=== PATIENT | male | born 1945 | race Caucasian/White ===

== ENCOUNTER 2018-08-24 09:43 | Outpatient (CLI) | payer MEDICARE, OTHER | END 2018-08-24 09:44 | disposition home or self-care (01) | LOC: NS 09:43 | PROVIDERS: ATTEND Internal Medicine | DX: Z71.3 Dietary counseling and surveillance (principal); E11.9 Type 2 diabetes mellitus without complications; Z79.84 Long term (current) use of oral hypoglycemic drugs | CPT/HCPCS: 97802 ==

== ENCOUNTER 2023-02-27 14:57 | Outpatient (CLI) | payer MEDICARE, OTHER ==
--- NOTE | 2023-02-28 10:36 | XRAY Report ---
PROCEDURE: Chest 2 View X-Ray INDICATIONS: COUGH TECHNIQUE: 2 views of the chest were acquired. COMPARISON: None. FINDINGS: Surgical changes and devices: None. Lungs and pleura: No pleural effusions or pneumothorax. Lungs are clear. Mediastinum: Mediastinal contours appear normal. Heart size is normal. Bones and chest wall: No suspicious bony lesions. Overlying soft tissues appear unremarkable. IMPRESSION: No acute cardiopulmonary process. Reviewed by: Thompson Pablo on 02/28/2023 10:34 AM PDT Approved by: Thompson Pablo on 02/28/2023 10:34 AM PDT Station ID: [id number]
== END 2023-02-27 14:58 | disposition home or self-care (01) ==
LOC: DI 14:57
PROVIDERS: ATTEND Student in an Organized Health Care Education/Training Program
DX: R05.9 Cough, unspecified (principal)

== ENCOUNTER 2023-04-16 13:00 | Outpatient (CLI) | payer MEDICARE, OTHER | END 2023-04-16 13:01 | disposition home or self-care (01) | LOC: RT 13:00 | PROVIDERS: ATTEND Student in an Organized Health Care Education/Training Program | DX: R05.9 Cough, unspecified (principal); R06.2 Wheezing | CPT/HCPCS: 94010; 94729 ==

== ENCOUNTER 2023-09-03 09:56 | Outpatient (CLI) | payer MEDICARE, OTHER ==
[2023-09-03 10:13] LABS: BASOPHILS # (AUTO) 0.1 10^3/uL (0.0-0.1); BASOPHILS % (AUTO) 0.7 %; EOSINOPHILS # (AUTO) 0.2 10^3/uL (0.0-0.7); EOSINOPHILS % (AUTO) 2.6 %; HCT - HEMATOCRIT 42.3 % (42.0-52.0); HGB - HEMOGLOBIN 13.6 g/dL (14.0-18.0); LYMPHOCYTES # (AUTO) 1.2 10^3/uL (1.5-3.5); LYMPHOCYTES % (AUTO) 16.5 %; MEAN CORPUSCULAR HEMOGLOBIN 29.2 pg (27.0-31.0); MEAN CORPUSCULAR HGB CONC 32.2 g/dL (32.0-36.0); MEAN PLATELET VOLUME 9.4 fL (7.4-11.4); MONOCYTES # (AUTO) 0.6 10^3/uL (0.0-1.0); MONOCYTES % (AUTO) 7.8 %; NEUTROPHILS # (AUTO) 5.3 10^3/uL (1.5-6.6); NEUTROPHILS % (AUTO) 71.9 %; PLT - PLATELET COUNT 203 10^3/uL (130-450); RED BLOOD COUNT 4.65 10^6/uL (4.70-6.10); RED CELL DISTRIBUTION WIDTH 14.2 % (12.0-15.0); WHITE BLOOD COUNT 7.3 x10^3/uL (4.8-10.8)
[2023-09-03 10:29] LABS: ALBUMIN 4.6 g/dL (3.2-5.5); ALBUMIN/GLOBULIN RATIO 1.6 (1.0-2.2); ALKALINE PHOSPHATASE 58 IU/L (42-121); ALT ALANINE AMINOTRANSFERASE 20 IU/L (10-60); AST ASPARTATE AMINOTRANSFERASE 18 IU/L (10-42); BILIRUBIN,TOTAL 0.7 mg/dL (0.2-1.0); BUN - BLOOD UREA NITROGEN 23 mg/dL (6-20); CARBON DIOXIDE - CO2 28 mmol/L (21-32); CHLORIDE 99 mmol/L (101-111); CHOL/HDL RATIO 5.1 (<5.0); CHOLESTEROL 187 mg/dL; CREATININE 1.3 mg/dL (0.6-1.3); CREATININE,URINE 211.3 mg/dL; GFR - MDRD 54 (>89); GLUCOSE 171 mg/dL (74-104); HDL CHOLESTEROL 37 mg/dL; LDL CHOLESTEROL,CALCULATED 97 mg/dL; LDL/HDL RATIO 2.6 (<3.6); MICROALBUM/CREATININE RATIO,UR 5.7 ug/mg (<30.0); MICROALBUMIN,URINE 1.2 mg/dL; POTASSIUM 5.4 mmol/L (3.5-4.5); SODIUM 132 mmol/L (135-145); TOTAL PROTEIN 7.5 g/dL (6.4-8.9); TRIGLYCERIDES 265 mg/dL (48-352); URIC ACID 6.7 mg/dL (4.4-7.6); VLDL CHOLESTEROL 53 mg/dL
[2023-09-03 10:44] LABS: THYROID STIMULATING HORMONE 1.86 uIU/mL (0.34-5.60)
[2023-09-03 10:47] LABS: ESTIMATED AVERAGE GLUCOSE 163 mg/dL (70-100); HEMOGLOBIN A1c% 7.3 % (4.27-6.07)
== END 2023-09-03 09:57 | disposition home or self-care (01) ==
LOC: LAB 09:56
PROVIDERS: ATTEND Nurse Practitioner
DX: I10 Essential (primary) hypertension (principal); Z12.5 Encounter for screening for malignant neoplasm of prostate; E11.9 Type 2 diabetes mellitus without complications; M10.9 Gout, unspecified; G62.9 Polyneuropathy, unspecified; R53.83 Other fatigue
CPT/HCPCS: 36415; 80053; 80061; 82043; 82570; 82607; 83036; 84443; 84550; 85025; G0103; 83721; 84153

== ENCOUNTER 2023-10-17 14:40 | Outpatient (CLI) | payer MEDICARE, OTHER ==
--- NOTE | 2023-10-17 21:21 | XRAY Report ---
PROCEDURE: Chest 2V INDICATIONS: COUGH TECHNIQUE: 2 views of the chest were acquired. COMPARISON: 07/25/2023. FINDINGS: Surgical changes and devices: None. Lungs and pleura: No pleural effusions or pneumothorax. Ill-defined opacity in left lower lung field is seen concerning for left lower lobe infiltrate. Right lung is clear.. Mediastinum: Mediastinal contours appear normal. Heart size is normal. Bones and chest wall: No suspicious bony lesions. Overlying soft tissues appear unremarkable. IMPRESSION: Finding is suggestive of small to moderate-sized left lower lobe infiltrate. No pleural effusion or p neumothorax. Reviewed by: Dominic Das MD on 10/17/2023 9:19 PM PST Approved by: Dominic Das MD on 10/17/2023 9:19 PM PST Station ID: [id number]
== END 2023-10-17 14:41 | disposition home or self-care (01) ==
LOC: DI 14:40
PROVIDERS: ATTEND Nurse Practitioner
DX: R05.9 Cough, unspecified (principal)

== ENCOUNTER 2023-11-19 23:35 | Emergency (ER) | payer MEDICARE, OTHER ==
--- NOTE | 2023-11-20 00:46 | ED Physician Documentation ---
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 denies cough, fever, soa, n/v, back pain. 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 Costa at [facility]. Patient had echocardiogram and treadmill stress test last week and is scheduled for nuclear stress testing this friday. he thinks his workup has been normal thus far. Review of Systems Constitutional: denies: Fever, Chills Cardiac: reports: Chest pain / pressure. denies: Palpitations Respiratory: denies: Dyspnea, Cough GI: denies: Abdominal Pain, Nausea, Vomiting PD PAST MEDICAL HISTORY - Past Medical History Cardiovascular: Hypertension Endocrine/Autoimmune: Type 2 diabetes - Past Surgical History Past Surgical History: No - Present Medications Home Medications: Ambulatory Orders Medication Instructions Recorded Confirmed Diltiazem HCl [Diltiazem 12Hr ER] 1 cap PO DAILY 11/19/23 11/19/23 Doxazosin [Cardura] 1 tab PO DAILY PM 11/19/23 11/19/23 Lisinopril [Zestril] 1 tab PO DAILY 11/19/23 11/19/23 Metoprolol Succinate [Toprol Xl] 1 tab PO DAILY 11/19/23 11/19/23 Spironolactone [Aldactone] 1 tab PO DAILY 11/19/23 11/19/23 allopurinoL [Allopurinol] 150 mg PO DAILY 11/19/23 11/19/23 metFORMIN [Glucophage] 1 tab PO BID 11/19/23 11/19/23 - Allergies Allergies/Adverse Reactions: Allergies Allergy/AdvReac Type Severity Reaction Status Date / Time Sulfa (Sulfonamide Allergy Unknown Verified 11/19/23 23:43 Antibiotics) - Social History Does the pt smoke?: No Smoking Status: Never smoker Does the pt drink ETOH?: Yes PD ED PE NORMAL - Vitals Vital signs reviewed: Yes - General General: Alert and oriented X 3, No acute distress, Well developed/nourished - HEENT HEENT: Atraumatic, PERRL, EOMI, Moist mucous membranes - Neck Neck: Supple, no meningeal sign - Cardiac Cardiac: RRR - Respiratory Respiratory: No respiratory distress, Clear bilaterally - Abdomen Abdomen: Non tender, Non distended - Derm Derm: Normal color, Warm and dry Results - Vitals Vitals: Vital Signs - 24 hr 11/19/23 11/20/23 11/20/23 23:38 00:12 00:42 Temperature 36.3 C L Heart Rate 77 75 72 Respiratory 26 H 16 18 Rate Blood Pressure 161/76 H O2 Saturation 99 98 95 11/20/23 11/20/23 11/20/23 01:12 01:30 02:00 Temperature Heart Rate 76 73 73 Respiratory 20 19 15 Rate Blood Pressure O2 Saturation 95 95 97 11/20/23 11/20/23 02:30 03:00 Temperature Heart Rate 74 77 Respiratory 15 16 Rate Blood Pressure O2 Saturation 97 96 Oxygen O2 Source Room air - EKG (time done) 2343 EKG releavant findings:: EKG personally interpreted by author of this note. Relevant findings are: Rate: Rate (enter#) (78) Rhythm: NSR [place]: Normal Intervals: Normal [place] QRS: Normal Ischemia: Normal ST segments - Labs Labs: Laboratory Tests 11/20/23 11/20/23 11/20/23 00:08 00:08 02:05 WBC 6.9 RBC 4.39 L Hgb 12.6 L Hct 39.2 L MCV 89.3 MCH 28.7 MCHC 32.1 RDW 15.8 H Plt Count 207 MPV 10.0 Neut # (Auto) 4.3 Lymph # (Auto) 1.6 [place] # (Auto) 0.8 Eos # (Auto) 0.2 Baso # (Auto) 0.1 Absolute Nucleated RBC 0.00 Nucleated RBC % 0.0 Sodium 137 Potassium 4.3 Chloride 102 Carbon Dioxide 26 Anion Gap 9.0 BUN 17 Creatinine 1.3 Estimated GFR (MDRD) 54 L Glucose 183 H Calcium 9.8 Total Bilirubin 0.3 AST 36 ALT 24 Alkaline Phosphatase 62 Troponin I High Sens 5.2 6.4 Total Protein 7.3 Albumin 4.3 Globulin 3.0 Albumin/Globulin Ratio 1.4 Lipase < 10 L PD Medical Decision Making - ED course ED course: 77yM presents with chest pain tonight, now resolved, with benign physical exam. cbc, abdominal panel, tropX2, ekg, cxr noncontributory. HEART score 3. Plan to dc home to f/u with cloth finishing range tender for nuclear stress this friday. return precautions given. Departure - Departure Disposition: , Self Care Clinical Impression: Chest pain Condition: Stable Instructions: ED Chest Pain Atypical Unkn Cause Comments: You were seen in the emergency department for chest pain. Your workup uncovered no emergent issues but you should follow up with your cloth finishing range tender to complete your nuclear stress test. Please return to the emergency department if you have any new or worsening symptoms or other concerns. Forms: PCP List
[2023-11-20 00:50] LABS: BASOPHILS # (AUTO) 0.1 10^3/uL (0.0-0.1); BASOPHILS % (AUTO) 0.7 %; EOSINOPHILS # (AUTO) 0.2 10^3/uL (0.0-0.7); EOSINOPHILS % (AUTO) 3.5 %; HCT - HEMATOCRIT 39.2 % (42.0-52.0); HGB - HEMOGLOBIN 12.6 g/dL (14.0-18.0); LYMPHOCYTES # (AUTO) 1.6 10^3/uL (1.5-3.5); LYMPHOCYTES % (AUTO) 22.4 %; MEAN CORPUSCULAR HEMOGLOBIN 28.7 pg (27.0-31.0); MEAN CORPUSCULAR HGB CONC 32.1 g/dL (32.0-36.0); MEAN CORPUSCULAR VOLUME 89.3 fL (80.0-94.0); MONOCYTES # (AUTO) 0.8 10^3/uL (0.0-1.0); MONOCYTES % (AUTO) 10.8 %; NEUTROPHILS # (AUTO) 4.3 10^3/uL (1.5-6.6); NEUTROPHILS % (AUTO) 62.2 %; PLT - PLATELET COUNT 207 10^3/uL (130-450); RED BLOOD COUNT 4.39 10^6/uL (4.70-6.10); RED CELL DISTRIBUTION WIDTH 15.8 % (12.0-15.0); WHITE BLOOD COUNT 6.9 x10^3/uL (4.8-10.8)
[2023-11-20 01:05] LABS: ALBUMIN 4.3 g/dL (3.2-5.5); ALBUMIN/GLOBULIN RATIO 1.4 (1.0-2.2); ALKALINE PHOSPHATASE 62 IU/L (42-121); ALT ALANINE AMINOTRANSFERASE 24 IU/L (10-60); AST ASPARTATE AMINOTRANSFERASE 36 IU/L (10-42); BILIRUBIN,TOTAL 0.3 mg/dL (0.2-1.0); BUN - BLOOD UREA NITROGEN 17 mg/dL (6-20); CALCIUM 9.8 mg/dL (8.5-10.3); CARBON DIOXIDE - CO2 26 mmol/L (21-32); CHLORIDE 102 mmol/L (101-111); CREATININE 1.3 mg/dL (0.6-1.3); GFR - MDRD 54 (>89); GLUCOSE 183 mg/dL (74-104); POTASSIUM 4.3 mmol/L (3.5-4.5); SODIUM 137 mmol/L (135-145); TOTAL PROTEIN 7.3 g/dL (6.4-8.9)
[2023-11-20 01:14] LABS: LIPASE < 10 U/L (11-82)
--- NOTE | 2023-11-20 01:19 | XRAY Report ---
PROCEDURE: Chest 1V INDICATIONS: Chest Pain TECHNIQUE: One view of the chest was acquired. COMPARISON: 10/17/2023 FINDINGS: Surgical changes and devices: None. Lungs and pleura: No pleural effusions or pneumothorax. No new focal consolidation. Near complete re solution of previously described left lower lobe pneumonia. Mediastinum: Mediastinal contours appear normal. Heart size is normal. Bones and chest wall: No suspicious bony lesions. Overlying soft tissues appear unremarkable. IMPRESSION: No acute cardiopulmonary process. Near-complete resolution of previously described left lower lobe pneumonia. No new focal airspace dis ease identified. Reviewed by: Deng Adan MD on 11/20/2023 1:17 AM PST Approved by: Deng Adan MD on 11/20/2023 1:17 AM PST Station ID: [id number]
[2023-11-20] MEDS: ASPIRIN CHEW 81 MG TABLET PO STA (01:25)
[2023-11-20 02:03] LABS: TROPONIN I HIGH SENSITIVITY 5.2 ng/L (2.3-19.7)
[2023-11-20 03:13] VITALS: O2SAT 96
[2023-11-20 03:23] VITALS: BP 143/93
== END 2023-11-20 03:25 | disposition home or self-care (01) ==
LOC: ED 23:35
DX: R07.89 Other chest pain (principal); I10 Essential (primary) hypertension; E11.9 Type 2 diabetes mellitus without complications; Z79.899 Other long term (current) drug therapy; Z79.84 Long term (current) use of oral hypoglycemic drugs
CPT/HCPCS: 36415; 71045; 80053; 83690; 84484; 85025; 93005; 99284; A9270

== ENCOUNTER 2024-04-13 11:18 | Outpatient (CLI) | payer MEDICARE, OTHER ==
[2024-04-13 21:59] LABS: ESTIMATED AVERAGE GLUCOSE 154 mg/dL (70-100)
== END 2024-04-13 11:19 | disposition home or self-care (01) ==
LOC: LAB.N 11:18
PROVIDERS: ATTEND Nurse Practitioner
DX: E11.9 Type 2 diabetes mellitus without complications (principal)
CPT/HCPCS: 36415; 83036

== ENCOUNTER 2024-04-13 15:53 | Emergency (ER) | payer MEDICARE, OTHER ==
[2024-04-13 16:25] LABS: BASOPHILS % (AUTO) 0.5 %; EOSINOPHILS # (AUTO) 0.2 10^3/uL (0.0-0.7); EOSINOPHILS % (AUTO) 2.1 %; HCT - HEMATOCRIT 38.2 % (42.0-52.0); HGB - HEMOGLOBIN 12.3 g/dL (14.0-18.0); LYMPHOCYTES # (AUTO) 1.7 10^3/uL (1.5-3.5); LYMPHOCYTES % (AUTO) 22.8 %; MEAN CORPUSCULAR HEMOGLOBIN 29.4 pg (27.0-31.0); MEAN CORPUSCULAR HGB CONC 32.2 g/dL (32.0-36.0); MEAN CORPUSCULAR VOLUME 91.4 fL (80.0-94.0); MEAN PLATELET VOLUME 9.9 fL (7.4-11.4); MONOCYTES # (AUTO) 0.7 10^3/uL (0.0-1.0); MONOCYTES % (AUTO) 8.7 %; NEUTROPHILS # (AUTO) 4.9 10^3/uL (1.5-6.6); NEUTROPHILS % (AUTO) 65.5 %; PLT - PLATELET COUNT 183 10^3/uL (130-450); RED BLOOD COUNT 4.18 10^6/uL (4.70-6.10); RED CELL DISTRIBUTION WIDTH 14.4 % (12.0-15.0); WHITE BLOOD COUNT 7.5 x10^3/uL (4.8-10.8)
[2024-04-13 16:40] LABS: ALBUMIN 4.6 g/dL (3.2-5.5); ALBUMIN/GLOBULIN RATIO 1.5 (1.0-2.2); BILIRUBIN,TOTAL 0.4 mg/dL (0.2-1.0); CALCIUM 9.9 mg/dL (8.5-10.3); CREATININE 1.4 mg/dL (0.6-1.3); POTASSIUM 4.4 mmol/L (3.5-4.5); TOTAL PROTEIN 7.7 g/dL (6.4-8.9)
[2024-04-13 17:56] LABS: BILIRUBIN,URINE NEGATIVE (NEGATIVE); GLUCOSE, URINE (UA) NEGATIVE (NEGATIVE); KETONES,URINE (UA) TRACE mg/dL (NEGATIVE); LEUKOCYTE ESTERASE, URINE NEGATIVE (NEGATIVE); NITRITE,URINE NEGATIVE (NEGATIVE); OCCULT BLOOD,URINE NEGATIVE (NEGATIVE); PROTEIN,URINE NEGATIVE (NEGATIVE); UROBILINOGEN,URINE 0.2 (NORMAL) E.U./dL (NORMAL)
[2024-04-13 18:10] LABS: CLARITY,URINE CLEAR (CLEAR)
--- NOTE | 2024-04-13 18:37 | ED Physician Documentation ---
PD HPI CHEST PAIN - Stated complaint Stated Complaint: CHEST PX - Chief complaint Chief Complaint: Cardiac - History obtained from History obtained from: Patient - Additional information Additional information: 78-year-old gentleman with no history of coronary disease but is getting a workup for some symptoms including he is having an angiogram scheduled in 48 hours. He developed pretty significant chest and back pain starting around 330. It is pretty much gone now. It was associate with shortness of breath and sweatiness. PD PAST MEDICAL HISTORY - Past Medical History Cardiovascular: Hypertension Endocrine/Autoimmune: Type 2 diabetes - Past Surgical History Past Surgical History: No - Present Medications Home Medications: Ambulatory Orders Medication Instructions Recorded Confirmed Diltiazem HCl [Diltiazem 12Hr ER] 1 cap PO DAILY 11/19/23 04/13/24 Doxazosin [Cardura] 1 tab PO DAILY PM 11/19/23 04/13/24 Lisinopril [Zestril] 1 tab PO DAILY 11/19/23 04/13/24 Metoprolol Succinate [Toprol Xl] 1 tab PO DAILY 11/19/23 04/13/24 allopurinoL [Allopurinol] 150 mg PO DAILY 11/19/23 04/13/24 metFORMIN [Glucophage] 1 tab PO BID 11/19/23 04/13/24 - Allergies Allergies/Adverse Reactions: Allergies Allergy/AdvReac Type Severity Reaction Status Date / Time Sulfa (Sulfonamide Allergy Unknown Verified 04/13/24 16:11 Antibiotics) - Social History Does the pt smoke?: No Smoking Status: Never smoker Does the pt drink ETOH?: Yes PD ED PE NORMAL - Vitals Vital signs reviewed: Yes - General General: Alert and oriented X 3, No acute distress - Cardiac Cardiac: RRR, No murmur - Respiratory Respiratory: No respiratory distress, Clear bilaterally - Abdomen Abdomen: Non tender - Neuro Neuro: Alert and oriented X 3, Normal speech - Psych Psych: Normal mood, Normal affect Results - Vitals Vitals: Vital Signs - 24 hr 04/13/24 04/13/24 04/13/24 15:54 18:47 19:25 Temperature 36.1 C L Heart Rate 93 90 91 Respiratory 16 15 20 Rate Blood Pressure 187/90 H 160/78 H 164/84 H O2 Saturation 100 99 99 04/13/24 04/13/24 04/13/24 19:55 20:55 21:22 Temperature 36.7 C Heart Rate 87 97 104 H Respiratory 16 23 19 Rate Blood Pressure 153/91 H 153/83 H 135/88 H O2 Saturation 98 100 99 04/13/24 23:00 Temperature 36.2 C L Heart Rate 98 Respiratory 18 Rate Blood Pressure 148/74 H O2 Saturation 97 Oxygen O2 Source Room air - EKG (time done) 1603 EKG releavant findings:: EKG personally interpreted by author of this note. Relevant findings are: Rate: Rate (enter#) (97) Rhythm: NSR (w pac) [place]: Normal Intervals: Normal [place] QRS: Normal Ischemia: Normal ST segments - Labs Labs: Laboratory Tests 04/13/24 04/13/24 04/13/24 16:08 16:20 16:20 WBC 7.5 RBC 4.18 L Hgb 12.3 L Hct 38.2 L MCV 91.4 MCH 29.4 MCHC 32.2 RDW 14.4 Plt Count 183 MPV 9.9 Neut # (Auto) 4.9 Lymph # (Auto) 1.7 [place] # (Auto) 0.7 Eos # (Auto) 0.2 Baso # (Auto) 0.0 Absolute Nucleated RBC 0.00 Nucleated RBC % 0.0 Sodium 134 L Potassium 4.4 Chloride 99 L Carbon Dioxide 22 Anion Gap 13.0 BUN 25 H Creatinine 1.4 H Estimated GFR (MDRD) 49 L Glucose 207 H Calcium 9.9 Total Bilirubin 0.4 AST 13 ALT 12 Alkaline Phosphatase 50 Troponin I High Sens Total Protein 7.7 Albumin 4.6 Globulin 3.1 Albumin/Globulin Ratio 1.5 Lipase 18 Urine Color YELLOW Urine Clarity CLEAR Urine pH 6.0 Ur Specific [place] 1.025 Urine Protein NEGATIVE Urine Glucose (UA) NEGATIVE Urine Ketones TRACE Urine Occult Blood NEGATIVE Urine Nitrite NEGATIVE Urine Bilirubin NEGATIVE Urine Urobilinogen 0.2 (NORMAL) Ur Leukocyte Esterase NEGATIVE Ur Microscopic Review NOT INDICATED Urine Culture Comments NOT INDICATED 04/13/24 04/13/24 04/13/24 16:20 18:43 21:20 WBC RBC Hgb Hct MCV MCH MCHC RDW Plt Count MPV Neut # (Auto) Lymph # (Auto) [place] # (Auto) Eos # (Auto) Baso # (Auto) Absolute Nucleated RBC Nucleated RBC % Sodium Potassium Chloride Carbon Dioxide Anion Gap BUN Creatinine Estimated GFR (MDRD) Glucose Calcium Total Bilirubin AST ALT Alkaline Phosphatase Troponin I High Sens 6.2 22.8 H* 40.5 H* Total Protein Albumin Globulin Albumin/Globulin Ratio Lipase Urine Color Urine Clarity Urine pH Ur Specific [place] Urine Protein Urine Glucose (UA) Urine Ketones Urine Occult Blood Urine Nitrite Urine Bilirubin Urine Urobilinogen Ur Leukocyte Esterase Ur Microscopic Review Urine Culture Comments PD Medical Decision Making - ED course ED course: 78-year-old gentleman presents with a concerning episode of chest pain. He is already undergoing a workup in [place] with Dr. Costa for ischemic heart disease with plan for angiogram in 48 hours. His EKG is nonischemic. Workup otherwise demonstrates mild normocytic anemia on CBC and CMP showing mild chronic kidney disease. Urinalysis was negative. He also has known gallstones but had no significant tenderness in the right upper quadrant and no elevation in his liver enzymes. No troponin had been ordered in triage and this was ordered after my evaluation which was mildly +22. He is still having just a hair of pain and I put out a call to [place] [facility] for consult. I also called the lab and asked them to run a troponin of the initial blood drawn when he was triaged. He was having a lot of shaking chills. The nurse checked his temperature and he was not becoming febrile. He thinks it might be due to stress, I did order a tiny dose of Haldol to see if that would help. Spoke with Dr. Triana, cardiology at [facility] at approximately 10:05 PM who agrees with current management and defers to the hospitalist for transfer. Accepted by Dr. Gordon, the hospitalist at [facility] at approximately 10:20 PM. - Critical Care Time(min): 42 Time Includes: Direct patient care, Review records, Reassess patient, Document care, Coordinate care, Medical consult, Family consult for tx dec, See progress note Data interpretation: Labs Procedures included in critical care time: Peripheral IV Procedures excluded from critical care time: EKG Departure - Departure Disposition: 02 Transfer Acute Care Hosp Clinical Impression: Unstable angina Condition: Serious Forms: PCP List Discharge Date/Time: 04/13/24 23:12
[2024-04-13] MEDS ORDERED: ONDANSETRON 4 MG/2 ML VIAL IVP PRN (19:11)
[2024-04-13] MEDS ORDERED: ACETAMINOPHEN 500 MG TABLET PO PRN (19:11)
[2024-04-13] MEDS: ASPIRIN CHEW 81 MG TABLET PO STA (19:22)
[2024-04-13] MEDS: ENOXAPARIN 100 MG/ML SYRINGE SUBQ STA (19:24)
[2024-04-13] MEDS: METOPROLOL 5 MG/5 ML VIAL IVP STA (19:29)
[2024-04-13] MEDS: ATORVASTATIN 40 MG TABLET PO SCH (21:18)
[2024-04-13] MEDS: METOPROLOL TARTRATE 25 MG TABLET PO SCH (21:18)
[2024-04-13] MEDS: HALOPERIDOL 5 MG/ML VIAL IVP STA (21:34)
[2024-04-13 23:15] VITALS: BP 148/74; O2SAT 97
[2024-04-14] MEDS ORDERED: PANTOPRAZOLE 40 MG TABLET PO SCH (07:00)
[2024-04-14] MEDS ORDERED: ENOXAPARIN 100 MG/ML SYRINGE SUBQ SCH (08:00)
[2024-04-14] MEDS ORDERED: ASPIRIN CHEW 81 MG TABLET PO SCH (09:00)
== END 2024-04-13 23:12 | disposition short-term general hospital (02) ==
LOC: ED 15:53
DX: I20.0 Unstable angina (principal); I12.9 Hypertensive chronic kidney disease with stage 1 through stage 4 chronic kidney disease, or unspecified chronic kidney disease; E11.22 Type 2 diabetes mellitus with diabetic chronic kidney disease; N18.9 Chronic kidney disease, unspecified; Z79.84 Long term (current) use of oral hypoglycemic drugs; K80.20 Calculus of gallbladder without cholecystitis without obstruction; R68.83 Chills (without fever)
CPT/HCPCS: 36415; 80053; 81003; 83036; 83690; 84484; 85025; 93005; 96372; 96374; 96375; 99291; A9270; J1650; 81001; 87086

== ENCOUNTER 2024-04-13 23:14 | Outpatient (CLI) | payer MEDICARE, OTHER | END 2024-04-13 23:15 | disposition short-term general hospital (02) | LOC: EMS 23:14 | PROVIDERS: ATTEND Emergency Medicine | DX: I21.4 Non-ST elevation (NSTEMI) myocardial infarction (principal) | CPT/HCPCS: A0425; A0426 ==